=== PATIENT | male | born 1985 | race Caucasian/White ===

== ENCOUNTER → 2016-09-30 | Outpatient (CLI) | payer OTHER ==
[~2016-09-30] MED LIST: BUPR75TA20 PO; PRED20TA PO
--- NOTE | 2016-10-01 06:32 | PAP/PSG TECHNICIAN REPORT ---
[facility] Nut Sorter Polysomnogram Report Study name: None Report date: 10/01/2016 Study date: 09/30/2016 Referring Physician: DR. BRINA MEJIA Name: KRISTINE SORENSEN Interpreting Physician: Serafin Fleming D.O. Date of : 1985 Nut Sorter: Kassidy Musa [facility]. Sex: Male Age: 31 Study Type: PSG Weight: 185 lbs Height: 31 years, Height 5' 10" BMI: 26.54 Medications: NONE REPORTED Patient History 31 yr-old male here for a baseline study. He has a history of daytime sleepiness, poor sleep, frequent awakenings, and waking up short of breath. His Eastman scale is 17. The test was started on room air. ETCO2 testing was not utilized during this study. Room 3 Parameters Monitored NPSG: E1-M2, E2-M1, Fp1-M2, Fp2-M1, F3-M2, F4-M2, F4-M1, C3-M2, C4-M2, C4-M1, O1-M2, O2-M2, O2-M1, T3-M2, T4-M1, P3-M2, P4-M1, CHIN1, CHIN2, HR, EKG, Legs, PFLOW, SNOR, FLOW, CFLOW, Tidal Volume, THOR, ABDO, SpO2, PLTH, CPRESS, ETCO2 Wave, ETCO2, pH Sleep Architecture Sleep Stages Time at Lights Off 10:59:18 PM STAGES Time (min.) TST (%) Time at Lights On 5:39:48 AM Wake 28.0 -- Total Recording Time (TRT) 400.50 min. N1 50.5 14 Total Sleep Period (TSP) 396.5 min. N2 251.5 68 Total Sleep Time (TST) 372.5min. N3 3.0 1 Awake Time 28.0 min. REM 67.5 18 Wake after Sleep Onset 24.0 min. Sleep Efficiency (SE) 93 % Sleep Onset Latency (ELIA) 4.0 min. Number of Stage 1 Shifts None Awakenings 16 Stage Changes 84 Number of REM periods 5 REM 67.5 18 REM Latency 172.5 min. NREM 305.0 82 Body Position Analysis Supine Right Left Side Prone Vertical Total Sleep Time (min.) 369.5 0.0 28.8 28.85 0.0 0.4 Total Sleep Time (%) 92% 0% 8% 8 0% N/A% Total Sleep Time REM (min.) 39.5 0.0 28.0 None 0.0 0.0 Total Sleep Time NREM (min.) 304.2 0.0 0.8 None 0.0 0.0 Intermittent Wake (min.) 25.9 0.0 1.8 None 0.0 0.4 Total Sleep Period (%) 92% None None None None None Arousals Myoclonus (PLM) * Events Count Index Events Count Index Spontaneous 66 11 Events Awake (PLMW) 43 92.1 Respiratory 0 0.0 Events Asleep w/ Arousal (PLMA) 22 3.5 PLM 22 4 Events Asleep w/o Arousal (PLMS) 71 11.4 Snoring 2 0 Total Asleep 93 15.0 Total 90 14 Total 136 20 Respiratory Analysis * CA OA MA CH H RERA Total Count 0 0 0 0 2 0 2 Index 0.0 0.0 0.0 0 0.3 0 0.3 Mean Duration 0.0 0.0 0.0 0.00 13.8 0.0 13.8 Longest Duration 0.0 0.0 0.0 0.00 0.0 0.0 16.9 Respiratory Event Summary Total Supine ~Supine Right Left Prone REM NREM Apneas Count 0 0 0 N/A 0 N/A 0 0 Index 0.0 0 0 N/A 0.0 N/A 0 0 Hypopneas (4% Desat) Count 2 2 0 N/A 0 N/A 0 2 Index 0.3 0.3 0 N/A 0.0 N/A 0.0 0.4 Apneas & All Hypopneas Count 2 2 0 N/A 0 N/A 0 2 Index 0.3 0 0 N/A 0 N/A 0.0 0.4 Respiratory Events (Credit Card Analyst+All Hyp+RERA) Count 2 2 0 N/A 0 N/A 0 2 Index 0.3 0 0 N/A 0.0 N/A 0.0 0.4 Respiratory Related Arousal Count 0 2 0 N/A 0 N/A 0 0 Index 0.0 0 0 N/A 0 N/A 0 0 Snoring Analysis Supine Right Left Prone REM NREM Total Snore duration 1.6 min Snores count 30 N/A 0 N/A 8 22 30 Snore mean duration 3.2 Sec Snores index 5 N/A 0 N/A 7.1 4.3 4.8 TST with snoring (%) 0.4% Desaturation Event Summary: Minimum %SpO2 Event Count Mean/Min/Max Duration(sec.) Desaturation Index % Time In Bed > 90 16 24.4 / 7.8 / 59.5 2.4 99.8 86 - 90 0 N/A 0.0 0.1 81 - 85 0 N/A 0.0 0.0 76 - 80 0 N/A 0.0 0.0 71 - 75 0 N/A 0.0 0.0 66 - 70 0 N/A 0.0 0.0 61 - 65 0 N/A 0.0 0.0 56 - 60 0 N/A 0.0 0.0 51 - 55 0 N/A 0.0 0.0 < 50 0 N/A 0.0 0.0 Total REM NREM Awake <50% 0.0 min. 0.0 min. 0.0 min. 0.0 min. 51 - 60% 0.0 min. 0.0 min. 0.0 min. 0.0 min. 61 - 70% 0.0 min. 0.0 min. 0.0 min. 0.0 min. 71 - 80% 0.0 min. 0.0 min. 0.0 min. 0.0 min. 81 - 90% 0.7 min. 0.0 min. 0.2 min. 0.5 min. 91 - 100% 395.5 min. 67.4 min. 304.2 min. 23.8 min. Average 95 97 95 95 Minimum SpO2 82 91 90 82 Desaturation Event Index 2.4 3.6 1.8 6.4 # Desat. Events below 89% N/A N/A N/A N/A Time(%) with Saturation below 89% 0.1 0.0 0.0 0.1 Time(min.) with Saturation below 89% 0.3 0.0 0.0 0.3 Time (mins) REM (mins) NREM (mins) % of TST SpO2 Below 90% 2 N/A N2 0.0 SpO2 Below 88% 0 0 0 0 Heart Rate Analysis Min (bpm) Max (bpm) Average (bpm) Awake 50 100 66 NREM 47 88 59 REM 45 86 57 Overall 45 88 58 Supplemental O2 Values Minimum O2 level: None Value Start Time End Time Nut Sorter Comments Mr. Sorensen slept in the left and supine position. No cardiac arrhythmias were noted. Some PLMs were noted. No bruxism noted. No snoring was noted. He awoke to use the restroom one time during the night. Mr. Sorensen stated that he slept about the same as usual. The final report will be interpreted and signed by a sleep physician. The completed physician report will then be placed in the patient medical record. Therapy (cm H2O) 0 TIB (min.) 400.5 TST (min.) 372.5 Sleep Onset (min.) 4.0 REM Onset From Sleep (min.) 172.5 Sleep Efficiency % 93 Wakefulness (%) 7 Wakefulness (min.) 28.0 NREM 1 (%) 14 NREM 1 (min.) 50.5 NREM 2 (%) 68 NREM 2 (min.) 251.5 NREM 3 (%) 1 NREM 3 (min.) 3.0 REM (%) 18 REM (min.) 67.5 # Arousals 90 Arousal Index 14 # Snore 30 Snore Index 4.8 AHI 0.3 AHI Supine 0 AHI Non-Supine 0 NREM AHI 0.4 REM AHI 0.0 RDI 0.3 # Obstructive Apnea 0 # Central Apnea 0 # Mixed Apnea 0 # Hypopneas 2 RERAs 0 Total Respiratory Events 2 Time Below SpO2 89% (min.) 0.0 Mean NREM SpO2 (%) 95 Mean REM SpO2 (%) 97 Mean Sleep SpO2 (%) 95 Min NREM SpO2 (%) 90 Min REM SpO2 (%) 91 Position Supine (min.) 369.5 Position Non-supine (min.) 28.8 LM Index Sleep 15.0 LM Index NREM 12.0 LM Index REM 28.4 Mean Heart Rate (bpm) 58 Min Heart Rate (bpm) 45
--- NOTE | 2016-10-03 08:41 | POLYSOMNOGRAPH REPORT ---
REFERRING PHYSICIAN: Dr. Diony Rushing, [facility]. CLINICAL DATA: The patient is a 31-year-old male with a BMI of 26.54. He has complaints of disturbed nocturnal sleep, nocturnal dyspnea, fatigue, and excessive daytime somnolence. His Duson score is 17 out of a possible 24. SLEEP ARCHITECTURE: The total sleep period was 396.5 minutes. The total sleep time was 372.5 minutes. The sleep efficiency was normal at 93%. The sleep latency was normal at 4 minutes. Wake after sleep onset was 24 minutes. The REM latency was prolonged to 172.5 minutes. Sleep consisted of stage N1 of 14%, stage N2 of 68%, stage N3 of 1%, and stage REM 18%. AROUSAL DATA: The patient had a total of 90 arousals including 66 spontaneous arousals, 22 PLM arousals, and 2 snoring arousals. The arousal index was 14. PLM DATA: The patient had 93 periodic limb movements of sleep for an index of 15. There were 22 arousals for a PLM arousal index of 3.5. EKG DATA: Heart rates ranged from 45 to 88 beats per minute. The average heart rate was 58 per minute. The rhythm was normal sinus. No arrhythmias were noted. RESPIRATORY DATA: The patient had a total of only 2 respiratory events for the entire night, both of which were hypopneas. Hypopneas were scored by the 4% desaturation rule. The mean duration of hypopneas was 13.8 seconds. The apnea hypopnea index was normal at 0.3. This would suggest no significant sleep apnea. OXIMETRY DATA: The average saturation for the night was 95%. There was no time with saturations less than 88%. The minimum saturations aside from technical reasons is 90%. TOOL DESIGN DRAFTSPERSON COMMENTS: The patient slept in the left and supine position. No cardiac arrhythmias noted. Some PLMs were noted. No bruxism noted. No snoring was noted. He awoke to use the restroom once during the night time. IMPRESSIONS: 1. No evidence of sleep apnea. 2. Periodic limb movement disorder -- mild. COMMENTS: The patient had a normal sleep efficiency. There was a decrease in stage N3 sleep compared with normal for an individual at this age. He did spend most of the night supine. There were modest number of arousals, most of which were spontaneous. He had a relatively mild amount of limb movements with few arousals. It seems unlikely that the limb movements are disturbing his sleep. The patient did not snore during the study. In light of his symptoms, but without evidence of sleep apnea, other potential diagnoses should be considered. RECOMMENDATIONS: The patient is to follow up with Dr. Diony Rushing.
== END | disposition home or self-care (01) ==
LOC: C.NEUR 21:00
PROVIDERS: ATTEND Family Medicine
DX: R53.83 Other fatigue (principal)

== ENCOUNTER 2016-10-17 08:29 | Emergency (ER) | payer OTHER ==
[~2016-10-17] VITALS: Ht 180.3 cm; Wt 82.4 kg
[2016-10-17 08:39] VITALS: TEMP 36.6; Ht 180.3 cm; Wt 82.4 kg
--- NOTE | 2016-10-17 09:18 | EMERGENCY ROOM VISIT NOTE ---
ED Visit Note First contact with patient: 08:54 CHIEF COMPLAINT: Shoulder pain HISTORY OF PRESENT ILLNESS: This 31-year-old male patient presents to the emergency department ambulator complaining of pain in the right shoulder since yesterday. There is moderate limitation of motion of the arm because of the pain. He denies any injury. There is no weakness of the arm. The pain is moderate, constant and increases with motion of the hand and arm. The patient states the pain is sharp and 4/10. The patient has taken advil with no relief of the pain. He had similar left shoulder pain in the past and was diagnosed with tendonitis. No numbness or tingling. he denies neck or back pain. No chest pain or shortness of breath. No abdominal pain or nausea/vomiting. No cough. REVIEW OF SYSTEMS: A 6 system review of systems was performed with positives and pertinent negatives in the HPI. ALLERGIES: sulfa MEDICATIONS: buspar PMH: anxiety/depression SOCIAL HISTORY: The patient lives locally. PHYSICAL EXAM: Vital Signs: Reviewed nurse's notes, vital signs stable. GENERAL : This is a 31 year old male, in no acute distress, but appears to be in pain, well-developed, well-nourished. MUSCULOSKELETAL: There is no deformity in the contour of the right shoulder and there are no jasmine deformities noted. There is no sulcus sign. There is tenderness over the bicipital groove. The patient's range of motion is decreased secondary to pain. Supraspinatus strength 5/5. There is muscle spasm over the right rhomboid. NEURO: The patient is alert and oriented to person, place, and time. Normal sensation to light and sharp touch. Capillary refill less than 2 seconds. Radial and brachial pulse 2+. EMERGENCY DEPARTMENT COURSE: I examined the patient. An X-ray of the right shoulder was reviewed by myself and radiology and shows no fracture or dislocation. The patient has atraumatic right shoulder pain. He has a history of similar in the left shoulder and had been diagnosed with tendinitis. The patient presented to the emergency department hoping for a cortisone injection in the shoulder. I advised them that this would be asked performed by orthopedics. The patient declined any narcotics. He will be given a prescription for prednisone. He should follow-up with his family doctor and/or orthopedics for further evaluation and management. He should return with any worsening symptoms. [~ rep ct add3]] RIGHT SHOULDER 4 VIEWS ROUTINE CLINICAL HISTORY: Right shoulder pain COMPARISON: None. DISCUSSION: No fractures or dislocations are visualized. There are no visible periarticular calcifications. IMPRESSION: Unremarkable conventional radiographic evaluation of the right shoulder. Current/Historical Medications Scheduled Bupropion (Wellbutrin), 150 MG PO QAM Bupropion (Wellbutrin), 75 MG PO QPM Prednisone (Prednisone), 0 PO DAILY Allergies Coded Allergies: Sulfa Antibiotics (Verified Allergy, Unknown, childhood allergy, 10/17/16) Vital Signs Date Time Temp Pulse Resp B/P (MAP) Pulse Ox O2 Delivery O2 Flow Rate FiO2 10/17/16 09:48 71 18 128/78 97 10/17/16 08:39 36.6 88 18 135/83 97 Room Air Departure Information Impression Primary Impression: Right shoulder pain Dispostion Home / Self-Care Condition GOOD Prescriptions Prednisone (Prednisone) 20 Mg Tab 0 PO DAILY, #18 TAB 3 DAILY FOR 3 DAYS, THEN 2 DAILY FOR 3 DAYS, THEN 1 DAILY FOR 3 DAYS. Prov: Jazz Dejesus PA-C 10/17/16 Referrals No Doctor, Assigned (PCP) Patient Instructions ED [place] [facility] [place] [facility] Additional Instructions Prednisone as prescribed, until finished Follow up with your doctor and/or orthopedics if pain persists Return with worsening symptoms Problem Qualifiers Primary Impression: Right shoulder pain Chronicity: acute Qualified Codes: M25.511 - Pain in right shoulder
--- NOTE | 2016-10-17 09:24 | DIAGNOSTIC IMAGING REPORT ---
RIGHT SHOULDER 4 VIEWS ROUTINE CLINICAL HISTORY: Right shoulder pain COMPARISON: None. DISCUSSION: No fractures or dislocations are visualized. There are no visible periarticular calcifications. IMPRESSION: Unremarkable conventional radiographic evaluation of the right shoulder. Electronically signed by: Ramiro Blair M.D. 10/17/2016 9:22 AM Dictated Date/Time: 10/17/2016 9:21 AM
[2016-10-17] MEDS ORDERED: BUPR75TA20 PO ×2 (09:26)
[2016-10-17] MEDS ORDERED: PRED20TA PO (09:34)
[2016-10-17 09:48] VITALS: BP 128/78; PULSE 71; O2SAT 97
== END 2016-10-17 09:49 | disposition home or self-care (01) ==
LOC: C.EDB 08:30 → C.EDA 09:49
DX: M25.511 Pain in right shoulder (principal); F32.9 Major depressive disorder, single episode, unspecified; F41.9 Anxiety disorder, unspecified; Z79.899 Other long term (current) drug therapy

== ENCOUNTER → 2017-02-02 | Outpatient (CLI) | payer OTHER ==
[~2017-02-02] VITALS: Ht 177.8 cm; Wt 84.9 kg
[2017-02-02 15:54] VITALS: BP 130/92; PULSE 71; Ht 177.8 cm; Wt 84.9 kg
== END | disposition home or self-care (01) ==
LOC: C.NEUR 14:55
PROVIDERS: ATTEND Internal Medicine Pulmonary Disease
DX: G47.00 Insomnia, unspecified (principal)